=== PATIENT | female | born 1995 | race Caucasian/White ===

== ENCOUNTER 2017-01-01 18:48 | Emergency (ER) | payer BC, OTHER ==
[~2017-01-01] VITALS: Ht 170.2 cm; Wt 105.9 kg
[2017-01-01 18:53] VITALS: TEMP 37; Ht 170.2 cm; Wt 105.9 kg
[2017-01-01] MEDS ORDERED: SODIUM CHLORIDE 0.9% 1000ML 1,000 ML IV STA (19:10)
[2017-01-01] MEDS ORDERED: ALBUTEROL HFA 8 GM INHALER INH ONE (19:15)
--- NOTE | 2017-01-01 19:19 | EMERGENCY ROOM VISIT NOTE ---
History Report prepared by Deepa: Jake Olmos Under the Supervision of: Dr. Cheo Schmid M.D. First contact with patient: 19:03 Chief Complaint: NECK PAIN Stated Complaint: R NECK SHOULDER PAIN,SLURRED SPEECH History of Present Illness The patient is a 21 year old female who presents to the Emergency Room with complaints of intermittent neck and shoulder pain beginning 6 hours ago. The patient states that she began to notice herself having slurred speech yesterday that continued into today. Along with her slurred speech, the patient notes that she began to feel a "pinching" right-sided shoulder pain that went to her right elbow today. She reports that she has a history of migraines but has not been experiencing a headache today. She also denies a fever, any recent trauma, and any possibility of . She also complains of a bad cough for a week. Per parents, the patient does not seem like her usual self. Source of History: patient Onset: 6 hours ago Position: shoulder (right), arm (right) Quality: other (pinching) Timing: intermittent Associated Symptoms: + cough, No fevers, No headache Note: The patient also complains of slurred speech. She denies any recent trauma. Review of Systems See HPI for pertinent positives & negatives. A total of 10 systems reviewed and were otherwise negative. Past Medical & Surgical Medical Problems: (1) Migraine Family History No pertinent family history stated. Social History Smoking Status: Never Smoker Alcohol Use: none Drug Use: none Marital Status: single Current/Historical Medications Scheduled Control Pills ( Control Pills), 1 TAB PO DAILY Insulin Aspart (novoLOG INSULIN PUMP ), 1 EA N/A UD Allergies Coded Allergies: No Known Allergies (Unverified , 01/01/17) Physical Exam Vital Signs Date Time Temp Pulse Resp B/P (MAP) Pulse Ox O2 Delivery O2 Flow Rate FiO2 01/01/17 22:00 93 18 132/87 100 Room Air 01/01/17 18:53 37.0 107 18 148/89 98 Room Air Physical Exam GENERAL: Patient is in no acute distress. HEENT: No acute trauma, normocephalic atraumatic, mucous membranes moist, no nasal congestion, no scleral icterus. NECK: No stridor, equal carotid upstrokes, no adenopathy, no meningismus, trachea is midline. Tender over right trapezius muscle, no rash. LUNGS: Scattered wheezes, no rhonchi, breath sounds equal. HEART: Mildly tachycardic, no murmurs, rhythm regular. ABDOMEN: Soft, nontender, bowel sounds positive, no hernias, no peritonitis. EXTREMITIES: No cyanosis or edema, full range of motion of all the joints without pain or difficulty, no signs for acute trauma. NEUROLOGIC: Oriented x 3, no acute motor or sensory deficits, no focal weakness. No speech slur or facial droop, no cerebellar deficits or pronator drift. SKIN: No rash, no jaundice, no diaphoresis. Medical Decision & Procedures ER Provider Diagnostic Interpretation: Radiology results as stated below per my review and radiologist interpretation: CHEST ONE VIEW PORTABLE FINDINGS: Lung volumes are normal. Lungs are clear. No pneumothorax or pleural effusion is present. Pulmonary vascularity is normal. Cardiomediastinal silhouette is normal. IMPRESSION: No acute cardiopulmonary findings. Electronically signed by: Carlo Velarde M.D. 01/01/2017 7:59 PM CAROTID ARTERY ULTRASOUND FINDINGS: There is no atherosclerotic plaque. Velocity measurements are listed below. COMMON CAROTID PEAK SYSTOLIC VELOCITY (CM/S): RIGHT 84 LEFT 90 ICA PEAK SYSTOLIC VELOCITY (CM/S): RIGHT 80 LEFT 84 The systolic ratios between the internal to common carotid arteries were normal. Antegrade flow is seen in the vertebral arteries. The external carotid arteries are patent. Blood pressure was not obtained in this patient due to IV. IMPRESSION: 1. No evidence for hemodynamically significant stenosis. 2. Normal carotid ultrasound. However, ultrasound has decreased sensitivity for the detection of dissection. Electronically signed by: Carlo Velarde M.D. 01/01/2017 10:02 PM MRI OF THE BRAIN WITHOUT AND WITH IV CONTRAST FINDINGS: There are no areas of restricted diffusion. No acute intracranial hemorrhage, midline shift or mass effect is present. Brain volume is normal. Ventricular system is normal. Basilar cisterns are patent. There are no extra-axial collections. Flow-voids for the major intracranial vessels are present. No areas of parenchymal signal abnormality are present. Orbits, sinuses and mastoid air cells are unremarkable. The adenoids and uvula are enlarged. IMPRESSION: 1. Normal MRI of the brain. 2. Enlarged adenoids and uvula. Electronically signed by: Carlo Velarde M.D. 01/01/2017 9:37 PM Laboratory Results 01/01/17 19:50 Red Blood Count 4.97, Mean Corpuscular Volume 85.9, Mean Corpuscular Hemoglobin 31.2, Mean Corpuscular Hemoglobin Concent 36.3, Mean Platelet Volume 9.7, Neutrophils (%) (Auto) 66.0, Lymphocytes (%) (Auto) 21.0, Monocytes (%) (Auto) 7.7, Eosinophils (%) (Auto) 4.7, Basophils (%) (Auto) 0.5, Neutrophils # (Auto) 5.00, Lymphocytes # (Auto) 1.59, Monocytes # (Auto) 0.58, Eosinophils # (Auto) 0.36, Basophils # (Auto) 0.04 01/01/17 19:50 01/01/17 20:50 Test 01/01/17 19:25 01/01/17 19:50 01/01/17 20:50 Urine Color YELLOW Urine Appearance CLEAR (CLEAR) Urine pH 8.0 (4.5-7.5) Urine Specific [place] 1.039 (1.000-1.030) Urine Protein NEG (NEG) Urine Glucose (UA) 3+ (NEG) Urine Ketones NEG (NEG) Urine Occult Blood NEG (NEG) Urine Nitrite NEG (NEG) Urine Bilirubin NEG (NEG) Urine Urobilinogen NEG (NEG) Urine Leukocyte Esterase NEG (NEG) White Blood Count 7.58 K/uL (4.8-10.8) Red Blood Count 4.97 M/uL (4.2-5.4) Hemoglobin 15.5 g/dL (12.0-16.0) Hematocrit 42.7 % (37-47) Mean Corpuscular Volume 85.9 fL (80-100) Mean Corpuscular Hemoglobin 31.2 pg (25-34) Mean Corpuscular Hemoglobin Concent 36.3 g/dl (32-36) Platelet Count 291 K/uL (130-400) Mean Platelet Volume 9.7 fL (7.4-10.4) Neutrophils (%) (Auto) 66.0 % Lymphocytes (%) (Auto) 21.0 % Monocytes (%) (Auto) 7.7 % Eosinophils (%) (Auto) 4.7 % Basophils (%) (Auto) 0.5 % Neutrophils # (Auto) 5.00 K/uL (1.4-6.5) Lymphocytes # (Auto) 1.59 K/uL (1.2-3.4) Monocytes # (Auto) 0.58 K/uL (0.11-0.59) Eosinophils # (Auto) 0.36 K/uL (0-0.5) Basophils # (Auto) 0.04 K/uL (0-0.2) RDW Standard Deviation 38.8 fL (36.4-46.3) RDW Coefficient of Variation 12.3 % (11.5-14.5) Immature Granulocyte % (Auto) 0.1 % Immature Granulocyte # (Auto) 0.01 K/uL (0.00-0.02) Anion Gap 11.0 mmol/L (3-11) Est Creatinine Clear Calc Drug Dose 122.8 ml/min Estimated GFR () 105.2 Estimated GFR (Non- 90.8 BUN/Creatinine Ratio 13.3 (10-20) Calcium Level 9.3 mg/dl (8.5-10.1) Total Bilirubin 0.4 mg/dl (0.2-1) Alanine Aminotransferase (ALT/SGPT) 26 U/L (12-78) Alkaline Phosphatase 121 U/L (45-117) Total Protein 8.0 gm/dl (6.4-8.2) Albumin 3.7 gm/dl (3.4-5.0) Globulin 4.3 gm/dl (2.5-4.0) Albumin/Globulin Ratio 0.9 (0.9-2) Thyroid Stimulating Hormone (TSH) 2.440 uIu/ml (0.300-4.500) Aspartate Amino Transf (AST/SGOT) 15 U/L (15-37) Human Chorionic Gonadotropin, Qual NEG (NEG) Laboratory results reviewed by me. Medications Administered Medications (Trade) Dose Ordered Sig/Devan Route Start Time Stop Time Status Last Admin Dose Admin Sodium Chloride 1,000 ml @ 999 mls/hr Q1H1M STAT IV 01/01/17 19:10 01/01/17 20:10 DC 01/01/17 19:10 999 MLS/HR Albuterol (Ventolin Hfa Inhaler) 2 puffs NOW ONCE INH 01/01/17 19:15 01/01/17 19:16 DC 01/01/17 22:01 2 PUFFS ED Course 190: The patient was evaluated in room B2. A complete history and physical exam was performed. 1909: Sodium Chloride 1000 ml @ 999 mls/hr IV 1914: Albuterol 2 puffs INH 2207: I reevaluated and updated the patient. 2229: Reevaluated the patient. Discussed results and discharge instructions: She verbalized understanding and agreement. The patient is ready for discharge. Medical Decision Differential diagnoses include: migraine, stroke, intracranial mass, nerve impingement, carotid dissection, dehydration, electrolyte abnormality, anemia, bronchitis, and pneumonia. There is no leukocytosis or concerning anemia. No significant electrolyte abnormality, kidney failure or hepatitis. The patient appears to be in a euthyroid state. Urinalysis does not show infection. Chest film does not show pneumonia or CHF. Carotid ultrasound shows no evidence for dissection or obstruction. Brain MRI shows no stroke or mass. On exam, there were no focal neurologic deficits. No speech slur. The patient was awake and oriented, she was not toxic or febrile. The patient received IV saline, she was given an albuterol inhaler to help the wheezing heard on exam. The patient presents with some speech slurring which is no longer present. She has some right arm pain and shoulder pain as well. Her right arm and shoulder pain seemed reproducible-this pain seems musculoskeletal. The patient's workup is benign and reassuring, patient is doing well. She is being discharged with [id number] pain control, heat and massage the shoulder were suggested. She will follow with her doctors office and return here for worsening symptoms. The cause for her slurred speech earlier is unclear. Medication Reconcilliation Current Medication List: was personally reviewed by me Blood Pressure Screening Patient's blood pressure: Elevated blood pressure Blood pressure disposition: Elevated BP felt to be situational Impression Primary Impression: Slurred speech Additional Impressions: Right arm pain Stroke-like symptoms Scribe Attestation The scribe's documentation has been prepared under my direction and personally reviewed by me in its entirety. I confirm that the note above accurately reflects all work, treatment, procedures, and medical decision making performed by me. Departure Information Dispostion Home / Self-Care Forms HOME CARE DOCUMENTATION FORM, IMPORTANT VISIT INFORMATION, WORK / SCHOOL INSTRUCTIONS Patient Instructions My [facility] Additional Instructions see brayden centeno next week rest stay well hydrated return for worsening symptoms lab testing and imaging was all ok today Stroke History Time Last Known Well Yesterday evening Stroke t-PA Criteria Reviewed Does NOT meet criteria for t-PA Reason t-PA Not Given Treatment not indicated Problem Qualifiers
[2017-01-01 19:55] LABS: URINE APPEARANCE CLEAR (CLEAR); URINE BILIRUBIN NEG (NEG); URINE COLOR YELLOW; URINE NITRITE NEG (NEG); URINE SPECIFIC GRAVITY 1.039 (1.000-1.030); UROBILINOGEN NEG (NEG); ZZUR CULT IF INDIC CLEAN CATCH NO
--- NOTE | 2017-01-01 20:00 | DIAGNOSTIC IMAGING REPORT ---
CHEST ONE VIEW PORTABLE CLINICAL HISTORY: Altered mental status. Weakness. COMPARISON STUDY: No previous studies for comparison. FINDINGS: Lung volumes are normal. Lungs are clear. No pneumothorax or pleural effusion is present. Pulmonary vascularity is normal. Cardiomediastinal silhouette is normal. IMPRESSION: No acute cardiopulmonary findings. Electronically signed by: Carlo Velarde M.D. 01/01/2017 7:59 PM Dictated Date/Time: 01/01/2017 7:59 PM
[2017-01-01 20:03] LABS: BASO % 0.5 %; BASO ABS # 0.04 K/uL (0-0.2); COMPLETE YES; EOS % 4.7 %; HEMATOCRIT 42.7 % (37-47); IG% 0.1 %; LYMPH ABS # 1.59 K/uL (1.2-3.4); MEAN CELL VOLUME 85.9 fL (80-100); MEAN CORPUSCULAR HEMOGLOBIN 31.2 pg (25-34); MEAN CORPUSCULAR HGB CONC 36.3 g/dl (32-36); MEAN PLATELET VOLUME 9.7 fL (7.4-10.4); MONO % 7.7 %; PLATELET COUNT 291 K/uL (130-400); RED BLOOD COUNT 4.97 M/uL (4.2-5.4); WHITE BLOOD COUNT 7.58 K/uL (4.8-10.8)
[2017-01-01 20:21] LABS: MANUAL MICROSCOPIC REQUIRED? NO; REVIEW REQ? NO
[2017-01-01] MEDS ORDERED: INSPMPNVLG (20:23)
[2017-01-01] MEDS ORDERED: BCPILLS PO (20:23)
[2017-01-01 20:37] LABS: ALB/GLOB RATIO 0.9 (0.9-2); ALKALINE PHOSPHATASE 121 U/L (45-117); ALT/SGPT 26 U/L (12-78); BLOOD UREA NITROGEN 12 mg/dl (7-18); BUN/CREATININE RATIO 13.3 (10-20); CALCIUM 9.3 mg/dl (8.5-10.1); CARBON DIOXIDE 24 mmol/L (21-32); CHLORIDE 102 mmol/L (98-107); GLUCOSE 190 mg/dl (70-99); SODIUM 137 mmol/L (136-145)
[2017-01-01 21:28] LABS: POTASSIUM 3.7 mmol/L (3.5-5.1)
--- NOTE | 2017-01-01 21:38 | DIAGNOSTIC IMAGING REPORT ---
MRI OF THE BRAIN WITHOUT AND WITH IV CONTRAST CLINICAL HISTORY: Slurred speech. Right sided neck pain. COMPARISON STUDY: No previous studies for comparison. TECHNIQUE: Utilizing a 1.5 Gris magnet and dedicated coil, multiplanar, multiecho imaging of the brain was performed pre and postcontrast administration. IV administration of 10.5 mL of Gadavist contrast was uneventful. FINDINGS: There are no areas of restricted diffusion. No acute intracranial hemorrhage, midline shift or mass effect is present. Brain volume is normal. Ventricular system is normal. Basilar cisterns are patent. There are no extra-axial collections. Flow-voids for the major intracranial vessels are present. No areas of parenchymal signal abnormality are present. Orbits, sinuses and mastoid air cells are unremarkable. The adenoids and uvula are enlarged. IMPRESSION: 1. Normal MRI of the brain. 2. Enlarged adenoids and uvula. Electronically signed by: Carlo Velarde M.D. 01/01/2017 9:37 PM Dictated Date/Time: 01/01/2017 9:32 PM
[2017-01-01 21:40] LABS: PREG INTERNAL NEGATIVE QC NEG CLEAR BACKGROUND; PREG INTERNAL POSITIVE QC POS CONTROL LINE
[2017-01-01] MEDS ORDERED: GADAVIST IV PRN (21:45)
[2017-01-01 22:00] VITALS: BP 132/87; PULSE 93; O2SAT 100
--- NOTE | 2017-01-01 22:04 | DIAGNOSTIC IMAGING REPORT ---
CAROTID ARTERY ULTRASOUND CLINICAL HISTORY: Slurred speech. Right neck and arm pain. Possible dissection. COMPARISON STUDY: None. TECHNIQUE: Real-time, grayscale, and color Doppler sonography of the carotid and vertebral arteries was performed. Images were viewed in the transverse and longitudinal planes. FINDINGS: There is no atherosclerotic plaque. Velocity measurements are listed below. COMMON CAROTID PEAK SYSTOLIC VELOCITY (CM/S): RIGHT 84 LEFT 90 ICA PEAK SYSTOLIC VELOCITY (CM/S): RIGHT 80 LEFT 84 The systolic ratios between the internal to common carotid arteries were normal. Antegrade flow is seen in the vertebral arteries. The external carotid arteries are patent. Blood pressure was not obtained in this patient due to IV. IMPRESSION: 1. No evidence for hemodynamically significant stenosis. 2. Normal carotid ultrasound. However, ultrasound has decreased sensitivity for the detection of dissection. Electronically signed by: Carlo Velarde M.D. 01/01/2017 10:02 PM Dictated Date/Time: 01/01/2017 9:58 PM
== END 2017-01-01 22:27 | disposition home or self-care (01) ==
LOC: C.EDB 18:49
DX: R47.81 Slurred speech (principal); M79.601 Pain in right arm; Z79.4 Long term (current) use of insulin